=== PATIENT | male | born 1975 | race Caucasian/White ===

== ENCOUNTER 2017-11-03 01:17 | Emergency (ER) | payer MEDICARE ==
[2017-11-03] MEDS ORDERED: BENZONATATE 100 MG CAPSULE PO ONE (01:43)
[2017-11-03] MEDS ORDERED: IBUPROFEN 600 MG TABLET PO ONE (01:43)
--- NOTE | 2017-11-03 02:34 | RADIOLOGY REPORT (SQ) ---
EXAM DESCRIPTION: CHEST SINGLE VIEW CLINICAL HISTORY: 42 years, Male, 2 weeks cough, fever COMPARISON: 09/23/2013 NUMBER OF VIEWS: 1 LIMITATIONS: None. FINDINGS: Moderate lung volume. Mild interstitial markings. Prominent cardiac silhouette. Small chronic opacity of the lower central chest may indicate a small hiatal hernia. IMPRESSION: Possible small hiatal hernia. Recommend CT or fluoroscopic upper GI evaluation as clinically warranted.
[2017-11-03] MEDS ORDERED: DEXAMETHASONE 4 MG TABLET PO ONE (02:36)
[2017-11-03] MEDS ORDERED: ALBUTEROL SULFATE HFA (90 MCG/PUFF) 8 GM MDI (1 MDI/ER DISP) IH PRN (02:37)
--- NOTE | 2017-11-03 02:38 | ER Document Report ---
ED General - General Chief Complaint: Cold ot flu symptoms Stated Complaint: COLD SYMPTOMS Time Seen by Provider: 11/03/17 01:42 Notes: Patient is a 42-year-old male who presents with 2 weeks of cough, nasal congestion, sinus pressure, nausea and fatigue. Patient reports that he felt his symptoms had improved up until 3 day goes ago when it seem like they recurred. He has had multiple sick contacts with the same symptoms. He has been trying [id number] remedies with moderate improvement of symptoms. Nothing seems to worsen the symptoms. He denies a history of similar symptoms in the past. He denies any IV drug use. No recorded fevers at home. No vomiting, diarrhea or syncope. He has been able to tolerate oral fluids without difficulty. He has not seen a primary doctor regarding today's concerns. TRAVEL OUTSIDE OF THE [place] IN LAST 30 DAYS: No - Related Data Allergies/Adverse Reactions: No Known Allergies Allergy (Unverified 10/01/13 01:03) Past Medical History - General Information source: Patient - Social History Smoking Status: Never Smoker Frequency of alcohol use: None Drug Abuse: None Family History: CAD, CVA, DM, Hypertension - Past Medical History Cardiac Medical History: Reports: Hx Hypertension Neurological Medical History: Reports: Hx Seizures - last 20 years ago Past Surgical History: Reports: Hx Orthopedic Surgery - low back - Immunizations Hx Diphtheria, Pertussis, Tetanus Vaccination: Yes Review of Systems - Review of Systems Notes: Constitutional: Negative for fever. Positive for fatigue HENT: Negative for sore throat. Eyes: Negative for visual changes. Cardiovascular: Negative for chest pain. Respiratory: Negative for shortness of breath. Positive for cough Gastrointestinal: Negative for abdominal pain, vomiting or diarrhea. Genitourinary: Negative for dysuria. Musculoskeletal: Negative for back pain. Skin: Negative for rash. Neurological: Negative for headaches, weakness or numbness. 10 point ROS negative except as marked above and in HPI. Physical Exam - Vital signs Vitals: Temp Pulse Resp BP Pulse Ox 100.2 F 105 H 16 159/95 H 97 11/03/17 01:23 11/03/17 01:23 11/03/17 01:23 11/03/17 01:23 11/03/17 01:23 Interpretation: Tachycardic Notes: PHYSICAL EXAMINATION: GENERAL: Well-appearing, well-nourished and in no acute distress. HEAD: Atraumatic, normocephalic. EYES: Pupils equal round and reactive to light, extraocular movements intact, sclera anicteric, conjunctiva are normal. ENT: nares patent, oropharynx clear without exudates. Moist mucous membranes. NECK: Normal range of motion, supple without lymphadenopathy LUNGS: Breath sounds clear to auscultation bilaterally and equal. No wheezes rales or rhonchi. HEART: Regular rate and rhythm without murmurs ABDOMEN: Soft, nontender, normoactive bowel sounds. No guarding, no rebound. No masses appreciated. EXTREMITIES: Normal range of motion, no pitting or edema. No cyanosis. NEUROLOGICAL: No focal neurological deficits. Moves all extremities spontaneously and on command. PSYCH: Normal mood, normal affect. SKIN: Warm, Dry, normal turgor, no rashes or lesions noted. Course - Re-evaluation Re-evalutation: 11/03/17 02:36 Patient presents with a clinical history and exam most consistent with an acute viral bronchitis. Patient is overall well in appearance without tachypnea, hypoxemia, tachycardia, or difficulty with ambulation. Breath sounds are clear bilaterally. No fever. Patient does have additional signs of upper respiratory infection including nasal congestion, sore throat, and sinus pressure. Chest x-ray clear without any evidence of acute pneumonia. No indication for laboratories. Will treat with bronchodilators, single dose of dexamethasone, and Tessalon Perles. At this time will discharge with return precautions and follow-up recommendations. Verbal discharge instructions given a the bedside and opportunity for questions given. Medication warnings reviewed. Patient is in agreement with this plan and has verbalized understanding of return precautions and the need for primary care follow-up in the next 24-72 hours. - Vital Signs Vital signs: Temp Pulse Resp BP Pulse Ox 97.5 F 94 16 147/91 H 96 11/03/17 03:10 11/03/17 03:10 11/03/17 03:10 11/03/17 03:10 11/03/17 03:10 - Diagnostic Test Radiology reviewed: Image reviewed, Reports reviewed Radiology results interpreted by me: 11/03/17 02:37 Chest x-ray: No acute infiltrate or pneumothorax Discharge - Discharge Clinical Impression: Bronchitis Upper respiratory infection Qualifiers: URI type: unspecified URI Qualified Code(s): J06.9 - Acute upper respiratory infection, unspecified Condition: Good Disposition: HOME, SELF-CARE Additional Instructions: You were seen for symptoms most consistent with bronchitis. This can take up to 12 weeks to fully resolve. This is generally due to a viral infection. Please follow-up with your primary doctor in the next 2-3 days. Return if you develop worsening cough, vomiting, fever >100.4, pass out, begin coughing blood, or have any other symptoms that are concerning to you. Please use the medications prescribed today as directed. Prescriptions: Benzonatate [Tessalon Perles 100 mg Capsule] 100 mg PO Q8HP PRN #40 capsule PRN Reason: Referrals: DIANE SANCHEZ NP [Primary Care Provider] - Follow up as needed
[2017-11-03 03:12] VITALS: BP 147/91
== END 2017-11-03 03:10 | disposition home or self-care (01) ==
LOC: ER 01:17
DX: J40 Bronchitis, not specified as acute or chronic (principal); J06.9 Acute upper respiratory infection, unspecified; R05 Cough; R09.81 Nasal congestion; R11.0 Nausea; R53.81 Other malaise; J34.89 Other specified disorders of nose and nasal sinuses; I10 Essential (primary) hypertension
CPT/HCPCS: 99283; 71045; A9270 ×3; J3490